=== PATIENT | male | born 2000 | race Caucasian/White ===

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

== ENCOUNTER 2020-09-28 14:31 | Emergency (ER) | payer OTHER ==
[2020-09-28 14:45] VITALS: BP 133/84; PULSE 71
--- NOTE | 2020-09-28 15:31 | EDM.PDOC ---
ED HPI GENERAL MEDICAL PROBLEM - General Chief Complaint: Upper Extremity Injury/Pain Stated Complaint: L HAND MIDDLE FINGER INJURY Time Seen by Provider: 09/28/20 14:40 Source of Information: Reports: Patient History Limitations: Reports: No Limitations - History of Present Illness INITIAL COMMENTS - FREE TEXT/NARRATIVE: 20-year-old male presents to the emergency department complaints of pain sustained to his left second finger due to hitting it with a hammer. Patient states he was at work and he struck his middle finger. Left Finger-Middle Pain Score (Numeric/FACES): 5 - Related Data Allergies Allergy/AdvReac Type Severity Reaction Status Date / Time No Known Allergies Allergy Verified 09/28/20 14:45 Home Meds: Home Meds Ranitidine [Zantac] 75 mg PO DAILY PRN 12/15/14 [History] Ibuprofen [Motrin] 600 mg PO Q6H PRN 12/15/16 [History] Hydrocodone/Acetaminophen [Hydrocodone-Acetamin 5-325 mg] 1 each PO Q6H #6 tablet 09/28/20 [Rx] Past Medical History - Past Health History Medical/Surgical History: Denies Medical/Surgical History Musculoskeletal History: Reports: Fracture, Other (See Below) Other Musculoskeletal History: Left Arm Fx 2010 - Infectious Disease History Infectious Disease History: Reports: None Social & Family History - Family History Family Medical History: No Pertinent Family History - Caffeine Use Caffeine Use: Reports: Energy Drinks, Soda Review of Systems - Review of Systems Review Of Systems: Comprehensive ROS is negative, except as noted in HPI. ED EXAM, GENERAL - Physical Exam Exam: See Below Exam Limited By: No Limitations General Appearance: Alert, WD/WN, No Apparent Distress Peripheral Pulses: 2+: Radial (L), Radial (R) Extremities: Other (Second digit on left hand with bruising, and edema noted to his knuckle. Skin is clean dry and intact. Patient is able to actively flex and extend, and move joint medially and laterally. CMS is positive.) Skin Exam: Warm, Dry, Intact. No: Normal Color (Bruising noted to left second finger at the knuckle) Course - Vital Signs Text/Narrative:: 2-year-old male with pain and swelling and bruising noted to the knuckle of second digit on left hand. Patient sustained injury at work as he was using a hammer and hit his second digit. Skin is clean dry and intact. I have ordered an x-ray. Last Recorded V/S: Last Vital Signs Temp 98.7 F 09/28/20 14:40 Pulse 71 09/28/20 14:40 Resp 16 09/28/20 14:40 BP 133/84 09/28/20 14:40 Pulse Ox 99 09/28/20 14:40 - Orders/Labs/Meds Orders: Active Orders 24 hr Category Date Time Status Fingers Second Digit Lt F1 [CR] Stat Exams 09/28/20 14:51 Taken - Radiology Interpretation Free Text/Narrative:: Fracture as noted on the second digit of the left hand mid phalanx. Second digit was splinted and patient will be instructed to follow-up with the orthopedic surgeon early next week. Departure - Departure Time of Disposition: 15:36 Disposition: Home, Self-Care 01 Condition: Good Clinical Impression: Fracture of finger of left hand Qualifiers: Encounter type: initial encounter Finger: middle finger Fracture type: closed Phalanx: middle Fracture alignment: nondisplaced Qualified Code(s): S62.653A - Nondisplaced fracture of middle phalanx of left middle finger, initial encounter for closed fracture - Discharge Information Prescriptions: Hydrocodone/Acetaminophen [Hydrocodone-Acetamin 5-325 mg] 1 each PO Q6H #6 tablet Referrals: PCP,None [Primary Care Provider] - Forms: ED Department Discharge, ED Return to Work/School Form Additional Instructions: You were seen in the ED today with complaints of injury to your middle finger on the left hand after hitting it with a hammer. Xray reveals that you do have a fracture noted to the middle. Keep the area splinted except to shower. You will need to follow up with the orthopedic surgeon first thing on thursday to schedule and appointment. [facility] [phone]. A prescription for pain medication has been sent to your pharmacy. Use this medication every 6 hours as needed for severe pain. May take Ibuprofen 600mg every 6 hours as needed for less severe pain. Ice the finger 20 minutes as a time three times daily. Sepsis Event Note (ED) - Evaluation Sepsis Screening Result: No Definite Risk - Focused Exam Vital Signs: Vital Signs Temp Pulse Resp BP Pulse Ox 09/28/20 14:40 98.7 F 71 16 133/84 99 - My Orders Last 24 Hours: My Active Orders 09/28/20 14:51 Fingers Second Digit Lt F1 [CR] Stat - Assessment/Plan Last 24 Hours: My Active Orders 09/28/20 14:51 Fingers Second Digit Lt F1 [CR] Stat
--- NOTE | 2020-09-29 10:39 | CR ---
Left third finger: 3 views centered to the left third finger were obtained. Comparison: No previous study. Oblique fracture is identified within the mid and proximal aspects of the middle phalanx of the third finger. Very minimal displacement is seen. Soft tissue swelling is noted. No additional osseous abnormality is seen within the left third finger. Impression: 1. Fracture within the middle phalanx of the left third finger with soft tissue swelling. Diagnostic code #3
== END 2020-09-28 15:52 | disposition home or self-care (01) ==
LOC: JD.ED 14:31
DX: S62.653A Nondisplaced fracture of middle phalanx of left middle finger, initial encounter for closed fracture (principal); W22.8XXA Striking against or struck by other objects, initial encounter
CPT/HCPCS: 73140-26-F1; 73140-F1; 99283

== ENCOUNTER 2025-05-13 19:31 | Emergency (ER) | payer OTHER ==
[2025-05-13 19:45] VITALS: BP 123/83; PULSE 96
[2025-05-13] MEDS: Fluorescein 1 MG Ophth Strip EYEBOTH ONE (20:14)
== END 2025-05-13 20:10 | disposition home or self-care (01) ==
LOC: JD.ED 19:31
DX: S05.01XA Injury of conjunctiva and corneal abrasion without foreign body, right eye, initial encounter (principal); Z79.899 Other long term (current) drug therapy; Z79.1 Long term (current) use of non-steroidal anti-inflammatories (NSAID); X58.XXXA Exposure to other specified factors, initial encounter
CPT/HCPCS: 99283; A9270; J3490